=== PATIENT | male | born 1985 | race Caucasian/White ===

== ENCOUNTER 2018-06-02 21:11 | Emergency (ER) | payer SELFPAY | END 2018-06-02 21:44 | disposition home or self-care (01) | LOC: SCSER 21:11 | DX: B02.9 Zoster without complications (principal); F17.210 Nicotine dependence, cigarettes, uncomplicated | CPT/HCPCS: 99282 ==

== ENCOUNTER 2024-09-20 11:10 | Emergency (ER) | payer SELFPAY | END 2024-09-20 12:02 | disposition home or self-care (01) | LOC: ERS 11:10 | DX: L01.00 Impetigo, unspecified (principal); F17.210 Nicotine dependence, cigarettes, uncomplicated | CPT/HCPCS: 99282 ==